=== PATIENT | female | born 1980 | race Caucasian/White ===

== ENCOUNTER 2019-05-10 21:45 | Emergency (ER) | payer OTHER ==
[~2019-05-10] VITALS: Ht 165.1 cm; Wt 72.6 kg
[2019-05-10 21:55] VITALS: BP 129/86
[2019-05-10] MEDS ORDERED: BACTRIM DS TAB1 EACH PO (22:08)
[2019-05-10] MEDS ORDERED: NORCO 5-325 TA1 EAC1 PO (22:08)
== END 2019-05-10 22:15 | disposition home or self-care (01) ==
LOC: M.ERS 21:45
DX: L03.211 Cellulitis of face (principal); Z88.0 Allergy status to penicillin; Z88.6 Allergy status to analgesic agent

== ENCOUNTER 2019-07-20 02:21 | Emergency (ER) | payer OTHER ==
[~2019-07-20] VITALS: Ht 165.1 cm; Wt 72.6 kg
[~2019-07-20 02:21] MED LIST: BACTRIM DS TAB1 EACH PO; NORCO 5-325 TA1 EAC1 PO
[2019-07-20] MEDS ORDERED: ERYTHROMYCIN500 MG PO (03:28)
[2019-07-20] MEDS ORDERED: IBUPROFEN 800800 MG PO ×2 (03:28→03:34)
[2019-07-20] MEDS ORDERED: TYLENOL WITH CO1 TA1 PO ×2 (03:28→03:34)
[2019-07-20 03:44] VITALS: BP 136/79
== END 2019-07-20 03:45 | disposition home or self-care (01) ==
LOC: M.ERS 02:21
DX: J02.9 Acute pharyngitis, unspecified (principal); E01.0 Iodine-deficiency related diffuse (endemic) goiter; F17.210 Nicotine dependence, cigarettes, uncomplicated; Z86.14 Personal history of Methicillin resistant Staphylococcus aureus infection; Z88.0 Allergy status to penicillin; Z88.6 Allergy status to analgesic agent

== ENCOUNTER 2020-01-10 11:59 | Emergency (ER) | payer OTHER ==
[~2020-01-10] VITALS: Ht 165.1 cm; Wt 72.6 kg
[~2020-01-10 11:59] MED LIST changes: +ERYTHROMYCIN500 MG PO; +IBUPROFEN 800800 MG PO; +TYLENOL WITH CO1 TA1 PO
[2020-01-10] MEDS ORDERED: CIPROFLOXIN HC2.5 M1 OPHTHALMIC (13:12)
[2020-01-10] MEDS ORDERED: NABUMETONE 750750 M1 PO (13:16)
[2020-01-10 13:24] VITALS: BP 138/81
[2020-01-11] MEDS ORDERED: HYDROCODON-ACE1 EAC8 PO (23:31)
[2020-01-11] MEDS ORDERED: KEFLEX500 M1 PO (23:31)
== END 2020-01-10 13:25 | disposition home or self-care (01) ==
LOC: M.ERS 11:59
DX: H10.9 Unspecified conjunctivitis (principal); Z86.14 Personal history of Methicillin resistant Staphylococcus aureus infection; Z88.0 Allergy status to penicillin; Z88.6 Allergy status to analgesic agent

== ENCOUNTER 2020-01-11 22:12 | Emergency (ER) | payer OTHER ==
[~2020-01-11] VITALS: Ht 165.1 cm; Wt 72.6 kg
[~2020-01-11 22:12] MED LIST changes: +CIPROFLOXIN HC2.5 M1 OPHTHALMIC; +NABUMETONE 750750 M1 PO
[2020-01-11] MEDS ORDERED: KEFLEX500 M1 PO (23:31)
[2020-01-11] MEDS ORDERED: HYDROCODON-ACE1 EAC8 PO (23:31)
[2020-01-11 23:48] VITALS: BP 145/101
== END 2020-01-11 23:48 | disposition home or self-care (01) ==
LOC: M.ERS 22:12
DX: H10.9 Unspecified conjunctivitis (principal); Z86.14 Personal history of Methicillin resistant Staphylococcus aureus infection; Z88.0 Allergy status to penicillin; Z88.6 Allergy status to analgesic agent

== ENCOUNTER 2020-02-25 14:45 | Emergency (ER) | payer OTHER ==
[~2020-02-25] VITALS: Ht 165.1 cm; Wt 77.1 kg
[~2020-02-25 14:45] MED LIST changes: +HYDROCODON-ACE1 EAC8 PO; +KEFLEX500 M1 PO
[2020-02-25 16:57] LABS: ABSOLUTE BASOPHILS 0.1 thou/uL (0.0-0.2); ABSOLUTE EOSINOPHILS 0.5 thou/uL (0.0-0.7); ABSOLUTE LYMPHOCYTES 3.5 thou/uL (0.8-5.3); ABSOLUTE NEUTROPHILS 5.8 thou/uL (1.6-8.1); BASOPHILS 1.1 %; EOSINOPHILS 4.3 %; HEMATOCRIT 47.6 % (37.0-47.0); HEMOGLOBIN 15.6 gm/dL (12.0-15.0); LYMPHOCYTES 32.1 %; MCHC 32.7 g/dL (28.0-37.0); MCV 91.8 fL (80.0-100.0); MONOCYTES 9.6 %; MPV 8.9 fl. (7.2-11.1); NUCLEATED RBCS 0 /100WBC; PLATELET COUNT* 313 thou/uL (150-400); POLYS 52.9 %; RBC 5.18 mil/uL (4.20-5.00); RDW-CV 14.1 % (10.5-14.5); WBC 10.9 thou/uL (4.0-11.0)
[2020-02-25 16:57] LABS: URINE BILIRUBIN NEGATIVE (Negative); URINE BLOOD TRACE (Negative); URINE CLARITY CLEAR; URINE COLOR YELLOW; URINE GLUCOSE-RANDOM NEGATIVE (Negative); URINE KETONES NEGATIVE (Negative); URINE LEUKOCYTES-REFLEX NEGATIVE (Negative); URINE NITRITE-REFLEX NEGATIVE (Negative); URINE PROTEIN NEGATIVE (Negative); URINE UROBILINOGEN 0.2 E.U./dl (0.2-1.0)
[2020-02-25 17:00] LABS: CREATININE 0.7 mg/dL (0.6-1.3); POTASSIUM 4.3 mmol/L (3.5-5.1)
[2020-02-25 17:05] LABS: TOTAL BILIRUBIN 0.2 mg/dL (<0.1-1.0); TOTAL PROTEIN 8.2 g/dL (6.4-8.2)
[2020-02-25] MEDS ORDERED: BENTYL 20 MG TA20 M1 PO (17:51)
[2020-02-25] MEDS ORDERED: NORCO 5-325 TA1 EAC1 PO (17:51)
[2020-02-25] MEDS ORDERED: ZOFRAN4 MG PO (17:51)
[2020-02-25 18:15] VITALS: BP 108/63
== END 2020-02-25 18:16 | disposition home or self-care (01) ==
LOC: M.ERS 14:45
PROVIDERS: Nurse Practitioner Family
DX: R10.31 Right lower quadrant pain (principal); N80.9 Endometriosis, unspecified; Z86.14 Personal history of Methicillin resistant Staphylococcus aureus infection; Z90.710 Acquired absence of both cervix and uterus; Z90.49 Acquired absence of other specified parts of digestive tract; Z88.0 Allergy status to penicillin; Z88.6 Allergy status to analgesic agent

== ENCOUNTER 2020-03-27 05:23 | Emergency (ER) | payer OTHER ==
[~2020-03-27] VITALS: Ht 165.1 cm; Wt 77.1 kg
[~2020-03-27 05:23] MED LIST changes: +BENTYL 20 MG TA20 M1 PO; +ZOFRAN4 MG PO
[2020-03-27] MEDS ORDERED: DOXYCYCLINE 10100 MG PO (06:15)
[2020-03-27] MEDS ORDERED: TYLENOL WITH CO1 TA1 PO (06:15)
[2020-03-27 06:21] VITALS: BP 126/85
== END 2020-03-27 06:21 | disposition home or self-care (01) ==
LOC: M.ERS 05:23
DX: L02.01 Cutaneous abscess of face (principal); G40.909 Epilepsy, unspecified, not intractable, without status epilepticus; Z88.0 Allergy status to penicillin; Z88.6 Allergy status to analgesic agent; Z90.710 Acquired absence of both cervix and uterus; Z90.49 Acquired absence of other specified parts of digestive tract; Z86.14 Personal history of Methicillin resistant Staphylococcus aureus infection

== ENCOUNTER 2020-06-03 22:39 | Emergency (ER) | payer OTHER ==
[~2020-06-03] VITALS: Ht 165.1 cm; Wt 72.6 kg
[~2020-06-03 22:39] MED LIST changes: +DOXYCYCLINE 10100 MG PO
[2020-06-03] MEDS ORDERED: NORCO 5-325 TA1 EAC2 PO (23:38)
[2020-06-03] MEDS ORDERED: PREDNISONE 20 M20 M1 PO (23:38)
[2020-06-03] MEDS ORDERED: FLEXERIL PO (23:38)
[2020-06-03 23:45] VITALS: BP 131/97
== END 2020-06-03 23:47 | disposition home or self-care (01) ==
LOC: M.ERS 22:39
DX: M54.31 Sciatica, right side (principal); Z90.710 Acquired absence of both cervix and uterus; Z90.49 Acquired absence of other specified parts of digestive tract; Z88.0 Allergy status to penicillin; Z88.6 Allergy status to analgesic agent

== ENCOUNTER 2020-08-26 17:59 | Emergency (ER) | payer OTHER ==
[~2020-08-26] VITALS: Ht 165.1 cm; Wt 74.8 kg
[~2020-08-26 17:59] MED LIST changes: +FLEXERIL PO; +NORCO 5-325 TA1 EAC2 PO; +PREDNISONE 20 M20 M1 PO
[2020-08-26] MEDS ORDERED: CLEOCIN HCL150 MG PO (18:32)
[2020-08-26] MEDS ORDERED: NORCO 5-325 TA1 EAC2 PO (18:32)
[2020-08-26 18:42] VITALS: BP 117/86
== END 2020-08-26 18:44 | disposition home or self-care (01) ==
LOC: M.ERS 17:59
DX: K02.9 Dental caries, unspecified (principal); Z88.0 Allergy status to penicillin; Z88.6 Allergy status to analgesic agent; Z90.49 Acquired absence of other specified parts of digestive tract; Z90.710 Acquired absence of both cervix and uterus

== ENCOUNTER 2021-01-30 21:42 | Emergency (ER) | payer OTHER ==
[~2021-01-30] VITALS: Ht 165.1 cm; Wt 79.8 kg
[~2021-01-30 21:42] MED LIST changes: +CLEOCIN HCL150 MG PO
[2021-01-30] MEDS ORDERED: TORADOL 10 MG T10 MG PO (22:47)
[2021-01-30] MEDS ORDERED: CYCLOBENZAPRINE5 MG PO (22:47)
[2021-01-30] MEDS ORDERED: ACETAMINOPHEN-1 EAC2 PO (22:47)
[2021-01-30 23:10] VITALS: BP 123/86
== END 2021-01-30 23:11 | disposition home or self-care (01) ==
LOC: M.ERS 21:42
DX: M54.41 Lumbago with sciatica, right side (principal); N80.9 Endometriosis, unspecified; F17.210 Nicotine dependence, cigarettes, uncomplicated; Z88.0 Allergy status to penicillin; Z88.6 Allergy status to analgesic agent; Z86.14 Personal history of Methicillin resistant Staphylococcus aureus infection; Z90.710 Acquired absence of both cervix and uterus; Z90.49 Acquired absence of other specified parts of digestive tract

== ENCOUNTER 2021-02-10 12:07 | Emergency (ER) | payer OTHER ==
[~2021-02-10] VITALS: Ht 170.2 cm; Wt 77.1 kg
[~2021-02-10 12:07] MED LIST changes: +ACETAMINOPHEN-1 EAC2 PO; +CYCLOBENZAPRINE5 MG PO; +TORADOL 10 MG T10 MG PO
[2021-02-10] MEDS ORDERED: HYDROCODON-ACE1 EAC7 PO (12:35)
[2021-02-10] MEDS ORDERED: CLEOCIN HCL300 MG PO (12:35)
[2021-02-10 12:51] VITALS: BP 119/81
== END 2021-02-10 12:52 | disposition home or self-care (01) ==
LOC: M.ERS 12:07
DX: K04.7 Periapical abscess without sinus (principal); Z88.0 Allergy status to penicillin; Z88.6 Allergy status to analgesic agent; Z90.710 Acquired absence of both cervix and uterus

== ENCOUNTER 2021-02-11 20:41 | Emergency (ER) | payer OTHER ==
[~2021-02-11] VITALS: Ht 165.1 cm; Wt 77.1 kg
[~2021-02-11 20:41] MED LIST changes: +CLEOCIN HCL300 MG PO; +HYDROCODON-ACE1 EAC7 PO
[2021-02-11 22:44] VITALS: BP 109/83
== END 2021-02-11 22:44 | disposition home or self-care (01) ==
LOC: M.ERS 20:41
DX: K04.7 Periapical abscess without sinus (principal); Z88.0 Allergy status to penicillin; Z88.6 Allergy status to analgesic agent; Z90.710 Acquired absence of both cervix and uterus

== ENCOUNTER 2021-03-29 21:03 | Emergency (ER) | payer OTHER ==
[~2021-03-29] VITALS: Ht 165.1 cm; Wt 72.6 kg
[2021-03-29 21:09] VITALS: BP 128/87
== END 2021-03-29 22:47 | disposition left against medical advice (07) ==
LOC: M.ERS 21:03
DX: M54.2 Cervicalgia (principal); M25.512 Pain in left shoulder; Z53.21 Procedure and treatment not carried out due to patient leaving prior to being seen by health care provider

== ENCOUNTER 2021-08-12 09:43 | Emergency (ER) | payer OTHER, MEDICAID ==
[~2021-08-12] VITALS: Ht 165.1 cm; Wt 72.6 kg
[2021-08-12] MEDS ORDERED: NORFLEX100 MG PO (10:36)
[2021-08-12] MEDS ORDERED: MEDROLDOSEPACK PO (10:36)
[2021-08-12 10:45] VITALS: BP 145/97
== END 2021-08-12 10:46 | disposition home or self-care (01) ==
LOC: M.ERS 09:43
DX: M54.41 Lumbago with sciatica, right side (principal); G40.909 Epilepsy, unspecified, not intractable, without status epilepticus; Z90.49 Acquired absence of other specified parts of digestive tract; Z90.710 Acquired absence of both cervix and uterus; Z88.0 Allergy status to penicillin; Z88.6 Allergy status to analgesic agent